=== PATIENT | female | born 1985 | race Caucasian/White ===

== ENCOUNTER 2016-09-11 18:06 | Emergency (ER) | payer OTHER ==
--- NOTE | ~2016-09-11 | CR181 ---
[facility]. [facility] A Service of [facility] RADIOLOGY TEXT RESULTS PATIENT: ALINA MENDEZ LOCATION: SED : 89 UNIT #: [id number] AGE: [address]: Catherine Arias SEX: F ORDER DR: [id number] [address] [address] [id number] E MR#: [id number] #: [id number] NAME: ALINA MENDEZ : 1985 SEX: F STUDY DATE/TIME: 09/11/2016 19:13 UNIT: SED ROOM: STUDY DESCRIPTION: CR Lumbar Spine 2 or 3 Views Attending Physician: Catherine Arias Pa-C Ordering Physician: Stevo Goldberg M.D. Primary Care Physician: Catalino Casillas Aprn MEDICAL IMAGING REPORT This report is preliminary unless electronic signature is present. EXAM Lumbar spine, 3 views, 09/11/2016. HISTORY Low back pain, acute onset yesterday, with no known injury. FINDINGS AP and lateral projections of the lumbar segment show good mineralization of both anterior and posterior elements. They are all anatomically normal without indication of fracture, dislocation, or malignant change of a sclerotic or lytic type. There is no congenital defect noted. The sacroiliac joints are normal. IMPRESSION Normal lumbar spine. Dictated by... Baljit Schneider M.D. THIS IS AN ELECTRONICALLY VERIFIED REPORT Baljit Schneider M.D. at 09/12/2016 2:14 PM SHELBY/arina TD: 09/12/2016 09:32 JOB #: [id number] MEDICAL IMAGING REPORT
[~2016-09-11 18:06] MED LIST: ADVAIR 2501 DISK W/D PO; ALBUTEROL HFA INH; ALBUTEROL17 GM; ALBUTEROL17 GM INH; AMOXICILLIN PO; AMOXICILLIN500 M1 PO; ANTIBIOTIC; BENADRYL ALLERG25 M1 PO; BENADRYL25 M1 PO; DOXYCYCLINE HY100 M1 PO; FLEXERIL10 MG PO; HYCODAN60 ML 5MG/; MACROBID100 M1 PO; NO MEDICATIONS; NORCO1 TAB 10/3 PO; PEPCID40 MG PO; PREDNISOLONE5 MG PO; PREDNISONE PO; PRENATAL1 TA1 PO; SYMMETREL100 MG; TYLENOL #3 PO; VIBRAMYCIN100 M1; VOLTAREN50 MG PO; VOLTAREN75 MG PO; ZITHROMAX PO; ZOFRAN ODT4 MG PO; ZOFRAN PO
[2016-09-11 19:01] LABS: URINE SOURCE CLEAN CATCH
[2016-09-11 19:04] LABS: URINE APPEARANCE CLEAR; URINE BILIRUBIN NEG (NEG); URINE BLOOD NEG (NEG); URINE COLOR YELLOW; URINE GLUCOSE NEG (NORM); URINE KETONE NEG (NEG); URINE LEUKOCYTE ESTERASE NEG (NEG); URINE NITRATE NEG (NEG); URINE PROTEIN NEG (NEG); URINE SPECIFIC GRAVITY >=1.030 (1.003-1.035); URINE UROBILINOGEN 0.2 MG/DL (NORM)
[2016-09-11 19:05] LABS: MICRO INDICATED? NO
== END 2016-09-11 19:52 | disposition home or self-care (01) ==
LOC: SED 18:06
PROVIDERS: Physician Assistant
DX: M54.9 Dorsalgia, unspecified (principal); F32.9 Major depressive disorder, single episode, unspecified; Z90.49 Acquired absence of other specified parts of digestive tract
CPT/HCPCS: 72100; 81003; 84703; 99283